=== PATIENT | male | born 1985 | race Caucasian/White ===

== ENCOUNTER 2017-01-01 08:00 | Emergency (ER) | payer SELFPAY ==
[2017-01-01 08:05] VITALS: TEMP 98.3; BMI 26.6
[2017-01-01] MEDS ORDERED: SODIUM CHLORIDE 0.9% 1000 ML INFUS.BAG IV ONE (08:28)
[2017-01-01] MEDS ORDERED: MAG HYDROX/AL HYDROX/SIMETH 30 ML UNIT-DOSE CUP PO ONE (08:28)
[2017-01-01] MEDS ORDERED: FAMOTIDINE 20 MG/50 ML IVPB 50 ML IVPB ONE ×2 (08:28→08:38)
[2017-01-01] MEDS ORDERED: ONDANSETRON *ODT* 4 MG TABLET SL ONE (08:29)
[2017-01-01] MEDS ORDERED: ONDANSETRON *ODT* 4 MG TABLET ONE (08:38)
[2017-01-01] MEDS ORDERED: MAG HYDROX/AL HYDROX/SIMETH 30 ML UNIT-DOSE CUP ONE (08:38)
--- NOTE | 2017-01-01 08:39 | PDOC ---
History of Present Illness - General Chief Complaint: Nausea/Vomiting Stated Complaint: STOMACH PAIN Time Seen by Provider: 01/01/17 08:16 - History of Present Illness Initial Comments: 01/01/17 08:29 CHIEF COMPLAINT: vomiting/diarrhea x 4 days HISTORY OF PRESENT ILLNESS: 31 yo M with no significant PMH presents to ED with vomiting, diarrhea, and abdominal pain x 4 days. Patient states on Wednesday night around 7 pm he started feeling stomach pain and started vomiting. He had approximately 4 episodes of vomiting Wed-Wed, with 10-15 episodes of diarrhea on those days as well. Yesterday he had 4 episodes of diarrhea, and today he went to the bathroom once with no diarrhea. He vomited once this morning after eating some chicken soup. He admits to drinking heavily every day for the past year, approximately 10-15 beers daily. He describes the pain as intermittent and epigastric, and that it moves up and down. He denies any back pain or radiation of the stomach pain. No recent travel or sick contacts. PAST MEDICAL HISTORY: Denies past medical history FAMILY HISTORY: Denies SOCIAL HISTORY: Lives at home with parents. Alcohol use - 10-15 beers daily. Denies tobacco use. History of cocaine use, stopped 8 years ago. SURGICAL HISTORY: Denies ALLERGIES: No known drug allergies REVIEW OF SYSTEMS General/Constitutional: Denies fever or chills. Denies weakness, weight change. HEENT: Denies change in vision. Denies ear pain or discharge. Denies sore throat. Cardiovascular: Denies chest pain or shortness of breath. Respiratory: Denies cough, wheezing, or hemoptysis. Gastrointestinal: Vomiting & diarrhea x 4 days. Denies rectal bleeding. Genitourinary: Denies dysuria, frequency, or change in urination. Musculoskeletal: Denies joint or muscle swelling or pain. Denies neck or back pain. Skin and breasts: Denies rash or easy bruising. PHYSICAL EXAM General Appearance: Well-appearing, appropriately dressed. No apparent distress , no intoxication. HEENT: EOMI, PERRLA, normal ENT inspection, normal voice, TMs normal, pharynx normal. No conjunctival pallor. No photophobia, scleral icterus. Respiratory/Chest: Lungs CTAB. Cardiovascular: RRR. S1, S2. No JVD, murmur, bradycardia, tachycardia. Gastrointestinal/Abdominal: Minimal epigastric tenderness. Normal bowel sounds. Abdomen soft, non-distended. No tenderness or rebound tenderness. No organomegaly, pulsatile mass, guarding, hernia, hepatomegaly, splenomegaly. Musculoskeletal/Extremities: Normal inspection. FROM of all extremities, normal capillary refill. Pelvis Stable. No CVA tenderness. No tenderness to extremities, pedal edema, swelling, erythema or deformity. Integumentary: Appropriate color, dry, warm. No cyanosis, erythema, jaundice or rash Neurologic: sports recruiter II-XII intact. Fully oriented, alert. Appropriate mood/affect. Motor strength 5/5. No appreciable EOM palsy, facial droop or sensory deficit. 01/01/17 11:20 Past History - Past Medical History Allergies/Adverse Reactions: Allergies Allergy/AdvReac Type Severity Reaction Status Date / Time No Known Allergies Allergy Verified 01/01/17 08:02 Home Medications: Ambulatory Orders Ondansetron [Zofran *Odt*] 8 mg SL TID PRN #12 od.tablet 01/01/17 Pantoprazole Sodium [Protonix] 40 mg PO DAILY #14 tablet. 01/01/17 - Psycho/Social/Smoking Cessation Hx Suicidal Ideation: No Smoking History: Never smoked Have you smoked in the past 12 months: No Information on smoking cessation initiated: No Hx Alcohol Use: No Drug/Substance Use Hx: No *Physical Exam - Vital Signs Last Vital Signs Temp Pulse Resp BP Pulse Ox 98.3 F 83 18 128/67 97 01/01/17 08:03 01/01/17 08:03 01/01/17 08:03 01/01/17 08:03 01/01/17 08:03 Medical Decision Making - Medical Decision Making 01/01/17 11:19 31 yo M with no significant PMH presents to ED with vomiting, diarrhea, and abdominal pain x 4 days. -lipase -IVF, famotidine, maalox Patient states he is feeling better after fluids and medications. Awaiting lipase. Lipase wnl. Advised patient to take medications as prescribed and f/u with PMD. ADvised patient of signs and symptoms for return to ED; patient verbalized understanding and agrees to plan. *DC/Admit/Observation/Transfer Diagnosis at time of Disposition: Acute gastroenteritis - Discharge Dispostion Disposition: HOME Condition at time of disposition: Stable Admit: No - Prescriptions Prescriptions: Pantoprazole Sodium [Protonix] 40 mg PO DAILY #14 tablet. Ondansetron [Zofran *Odt*] 8 mg SL TID PRN #12 od.tablet PRN Reason: Nausea And/Or Vomiting - Referrals Referrals: Josefa Pastrana MD [Primary Care Provider] - - Patient Instructions Printed Discharge Instructions: DI for Diarrhea and Traveler's Diarrhea -- Adult, DI for Vomiting -- Adult - Post Discharge Activity Work/School Note: Back to Work
[2017-01-01 12:36] VITALS: BP 122/70; PULSE 79
== END 2017-01-01 12:36 | disposition home or self-care (01) ==
LOC: JER 08:00
PROC: 3E033GC Introduction of Other Therapeutic Substance into Peripheral Vein, Percutaneous Approach (ICD-10-PCS; principal; 2017-01-01)
DX: K52.9 Noninfective gastroenteritis and colitis, unspecified (principal)
CPT/HCPCS: 36415; 83690; 99283-25

== ENCOUNTER 2017-10-17 06:05 | Emergency (ER) | payer SELFPAY ==
[2017-10-17 06:25] VITALS: BP 111/78; PULSE 106; TEMP 99.2; BMI 29.0
--- NOTE | 2017-10-17 06:37 | PDOC ---
History of Present Illness - General History Source: Patient Exam Limitations: No Limitations - History of Present Illness Initial Comments: 10/17/17 06:51 Patient is a 32 year old male with no significant past medical history who presents to the ED with complaints of flu like symptoms that began yesterday afternoon. Patient reports experiencing chest pain secondary to cough with general body aches that have shown no signs of subsiding. He reports taking theraflu for his symptoms before going to sleep and waking up this morning with more intense symptoms prompting him to come into the ED for further evaluation. Patient states he does work in [employer] where many of his coworkers are sick with possible flu. Denies Sob. Denies fevers, chills. Denies nausea, vomiting. Denies change in appetite, out of state travelling. Denies any other symptoms. Allergies: shellfish Social history: No smoking. No alcohol. No illicit drugs. Surgical history: None PMD: None <Victoriano Green - Last Filed: 10/17/17 06:51> <Estelle Salas - Last Filed: 10/17/17 08:02> - General Chief Complaint: Cold Symptoms Stated Complaint: COLD Time Seen by Provider: 10/17/17 06:22 Past History <Victoriano Green - Last Filed: 10/17/17 06:51> - Suicide/Smoking/Psychosocial Hx Smoking History: Never smoked Have you smoked in the past 12 months: No Information on smoking cessation initiated: No Hx Alcohol Use: No Drug/Substance Use Hx: No Substance Use Type: None <Estelle Salas - Last Filed: 10/17/17 08:02> - Past Medical History Allergies/Adverse Reactions: Allergies Allergy/AdvReac Type Severity Reaction Status Date / Time shellfish derived Allergy Verified 10/17/17 06:21 Home Medications: Ambulatory Orders Oseltamivir Phosphate [Tamiflu -] 75 mg PO BID #10 capsule 10/17/17 Review of Systems - Review of Systems Able to Perform ROS?: Yes Comments:: 10/17/17 06:52 GENERAL/CONSTITUTIONAL: No fever or chills. No weakness. HEAD, EYES, EARS, NOSE AND THROAT: No change in vision. No ear pain or discharge. No sore throat. CARDIOVASCULAR: +chest pain. No shortness of breath. RESPIRATORY: +Coughing. No wheezing, or hemoptysis. GASTROINTESTINAL: No nausea, vomiting, diarrhea or constipation. GENITOURINARY: No dysuria, frequency, or change in urination. MUSCULOSKELETAL: No joint or muscle swelling or pain. No neck or back pain. SKIN: No rash NEUROLOGIC: No headache, vertigo, loss of consciousness, or change in strength/ sensation. ENDOCRINE: No increased thirst. No abnormal weight change. HEMATOLOGIC/LYMPHATIC: No anemia, easy bleeding, or history of blood clots. ALLERGIC/IMMUNOLOGIC: No hives or skin allergy. All Other Systems: Reviewed and Negative <Victoriano Green - Last Filed: 10/17/17 06:51> *Physical Exam - Vital Signs Last Vital Signs Temp Pulse Resp BP Pulse Ox 99.2 F 106 H 16 111/78 99 10/17/17 06:18 10/17/17 06:18 10/17/17 06:18 10/17/17 06:18 10/17/17 06:18 - Physical Exam Comments: 10/17/17 06:52 GENERAL: Awake, alert, and fully oriented, in no acute distress HEAD: No signs of trauma EYES: PERRLA, EOMI, sclera anicteric, conjunctiva clear ENT: Auricles normal inspection, hearing grossly normal, nares patent, oropharynx clear without exudates. Moist mucosa NECK: Normal ROM, supple, no lymphadenopathy, JVD, or masses LUNGS: Breath sounds equal, clear to auscultation bilaterally. No wheezes, and no crackles HEART: Regular rate and rhythm, normal S1 and S2, no murmurs, rubs or gallops ABDOMEN: Soft, nontender, normoactive bowel sounds. No guarding, no rebound. No masses EXTREMITIES: Normal range of motion, no edema. No clubbing or cyanosis. No cords, erythema, or tenderness NEUROLOGICAL: Cranial nerves II through XII grossly intact. Normal speech, normal gait SKIN: Warm, Dry, normal turgor, no rashes or lesions noted. <Victoriano Green - Last Filed: 10/17/17 06:51> - Vital Signs Last Vital Signs Temp Pulse Resp BP Pulse Ox 99.2 F 106 H 16 111/78 99 10/17/17 06:18 10/17/17 06:18 10/17/17 06:18 10/17/17 06:18 10/17/17 06:18 <Estelle Salas - Last Filed: 10/17/17 08:02> Medical Decision Making - Medical Decision Making 10/17/17 07:11 Pt comes with cough and cold and body aches. He works with people with the flu. <Estelle Salas - Last Filed: 10/17/17 08:02> *DC/Admit/Observation/Transfer - Attestations Scribe Attestion: 10/17/17 06:52 Documentation prepared by Victoriano Green, acting as registered medical transcriptionist for Estelle Salas MD/DO. <Victoriano Green - Last Filed: 10/17/17 06:51> - Discharge Dispostion Admit: No <Estelle Salas - Last Filed: 10/17/17 08:02> Diagnosis at time of Disposition: Viral illness, Influenza - Discharge Dispostion Condition at time of disposition: Stable - Prescriptions Prescriptions: Oseltamivir Phosphate [Tamiflu -] 75 mg PO BID #10 capsule - Patient Instructions Printed Discharge Instructions: How to Avoid a Cold or Flu, Influenza - Post Discharge Activity Forms/Work/School Notes: Back to Work
[2017-10-17] MEDS ORDERED: IBUPROFEN 600 MG TABLET (FP) PO ONE ×2 (06:44→06:53)
[2017-10-17] MEDS ORDERED: OSELTAMIVIR PHOSPHATE 75 MG CAPSULE PO ONE (07:50)
[2017-10-17] MEDS ORDERED: OSELTAMIVIR PHOSPHATE 75 MG CAPSULE ONE (08:05)
== END 2017-10-17 08:12 | disposition home or self-care (01) ==
LOC: JER 06:05
DX: J09.X2 Influenza due to identified novel influenza A virus with other respiratory manifestations (principal)
CPT/HCPCS: 87804; 99282-25

== ENCOUNTER 2024-06-25 16:35 | Emergency (ER) | payer SELFPAY ==
[2024-06-25 16:50] VITALS: BP 123/77; PULSE 67; RESP 18; TEMP 97.8; BMI 36.1
[2024-06-25] MEDS ORDERED: ACETAMINOPHEN 500 MG TABLET (FP) ONE (17:12)
[2024-06-25] MEDS: ACETAMINOPHEN 500 MG TABLET (FP) PO ONE (17:12)
== END 2024-06-25 17:37 | disposition home or self-care (01) ==
LOC: JER 16:35 → JERFT 16:35
DX: R51.9 Headache, unspecified (principal); Y04.8XXA Assault by other bodily force, initial encounter
CPT/HCPCS: 99284-25